=== PATIENT | male | born 1960 ===

== ENCOUNTER 2016-12-02 16:41 | Emergency (ER) | payer MEDICARE, OTHER ==
[2016-12-02 16:41] VITALS: BMI 29.9
[2016-12-02 16:51] VITALS: RESP 18
[2016-12-02] MEDS ORDERED: Sodium Chloride 0.9% 1,000 ML IV SCH (17:30)
--- NOTE | 2016-12-02 17:32 | ED PDOC ---
HPI: Chest Pain Time Seen by Provider: 12/02/16 17:16 Chief Complaint (Nursing): Chest Pain Chief Complaint (Provider): Chest Pain History Per: Patient History/Exam Limitations: no limitations Onset/Duration Of Symptoms: Days (x2) Current Symptoms Are (Timing): Still Present Additional Complaint(s): Sergo Heredia is a 56 year old male with previous medical history of migranes and kidney stones, who presents to the emergency department, accompanied by his friend, with a complaint of upper chest pain associated with generalized body aches and headache ongoing for 2 days. Denied cough, fever, chills or taking pain medication for relief. Patient stated that he feels "like a mac truck ran over his body" and that symptoms do not feel like prior kidney stone episodes. PMD: Denilson Carballo MD Past Medical History Reviewed: Historical Data, Nursing Documentation, Vital Signs Vital Signs: Last Vital Signs Temp 98.2 F 12/02/16 16:49 Pulse 92 H 12/02/16 17:19 Resp 18 12/02/16 17:19 BP 129/82 12/02/16 17:19 Pulse Ox 100 12/02/16 19:02 - Medical History PMH: Back Problems, Gastritis, Kidney Stones, Chronic Kidney Disease Denies: Arthritis - Surgical History Surgical History: No Surg Hx - Family History Family History: States: Unknown Family Hx - Social History Current smoker - smoking cessation education provided: Yes Alcohol: None Drugs: Denies - Immunization History Hx Tetanus Toxoid Vaccination: No Hx Influenza Vaccination: No Hx Pneumococcal Vaccination: No - Home Medications Home Medications: Ambulatory Orders Medication Instructions Recorded oxyCODONE/Acetaminophen [Percocet 1 tab PO Q6 #10 tab 03/31/16 5/325 mg Tab] - Allergies Allergies/Adverse Reactions: Allergies Allergy/AdvReac Type Severity Reaction Status Date / Time chicken derived Allergy Intermediate RASH Verified 03/31/16 16:52 Review of Systems ROS Statement: Except As Marked, All Systems Reviewed And Found Negative Constitutional: Positive for: Other (generalized body aches). Negative for: Fever, Chills Cardiovascular: Positive for: Chest Pain (upper) Respiratory: Negative for: Cough Neurological: Positive for: Headache Physical Exam - Reviewed Nursing Documentation Reviewed: Yes Vital Signs Reviewed: Yes - Physical Exam Appears: Positive for: Well, Non-toxic, No Acute Distress Head Exam: Positive for: ATRAUMATIC, NORMAL INSPECTION, NORMOCEPHALIC ENT: Positive for: Normal ENT Inspection, Pharynx Is (within normal limits). Negative for: Pharyngeal Erythema, Tonsillar Exudate, Tonsillar Swelling Neck: Positive for: Normal, Painless ROM, Supple Cardiovascular/Chest: Positive for: Regular Rate, Rhythm. Negative for: Chest Non Tender Respiratory: Positive for: Normal Breath Sounds. Negative for: Crackles, Rales , Rhonchi, Wheezing, Respiratory Distress Pulses-Radial (L): 2+ Pulses-Radial (R): 2+ Gastrointestinal/Abdominal: Positive for: Normal Exam, Bowel Sounds, Soft. Negative for: Tenderness, Guarding, Rebound Back: Positive for: Normal Inspection. Negative for: L CVA Tenderness, R CVA Tenderness Extremity: Positive for: Normal ROM. Negative for: Tenderness, Pedal Edema DTR - Ankle (R): 2+ DTR - Ankle (L): 2+ Neurologic/Psych: Positive for: Alert, screening representative II-XII, Oriented - Laboratory Results Result Diagrams: 12/02/16 17:49 12/02/16 17:49 - ECG O2 Sat by Pulse Oximetry: 100 (RA) Pulse Ox Interpretation: Normal Medical Decision Making Medical Decision Making: Initial Impression: Chest pain Initial Plan: * EKG * Labs * Drug screen, urine * Troponin I * Erythrocyte Sed Rate * Tylenol 650mg PO * Toradol 30mg IVP * NS 1,000ml IV per 1,000mls/hr * [place] swab * Influenza swab * Urinalysis Time: 1900 --Patient is signed out to Dr. Alber Dai. Pending lab results. Scribe Attestation: Documented by Mae Ledbetter, acting as a scribe for Ade Patton MD. Provider Scribe Attestation: All medical record entries made by the Scribe were at my direction and personally dictated by me. I have reviewed the chart and agree that the record accurately reflects my personal performance of the history, physical exam, medical decision making, and the department course for this patient. I have also personally directed, reviewed, and agree with the discharge instructions and disposition. Disposition - Clinical Impression Clinical Impression: Chest pain - Patient ED Disposition Is Patient to be Admitted: Transfer of Care Doctor Will See Patient In The: Office - Disposition Disposition: Transfer of Care Disposition Time: 19:03 Condition: GUARDED Forms: [facility] (Jordanian) Patient Signed Over To: Alber Dai Present On Arrival: None
[2016-12-02 17:55] LABS: BASO # 0.1 K/uL (0.0-0.2); BASO % 1.4 % (0.0-2.0); EOS # 0.2 K/uL (0.0-0.7); EOS % 1.8 % (0.0-4.0); HEMATOCRIT 42.6 % (35.0-51.0); LYMPH # 2.2 K/uL (1.0-4.3); LYMPH % 25.8 % (20.0-40.0); MEAN CELL VOLUME 90.9 fl (80.0-94.0); MEAN CORPUSCULAR HEMOGLOBIN 30.7 pg (27.0-31.0); MEAN CORPUSCULAR HGB CONC 33.8 g/dL (33.0-37.0); MONO # 0.4 K/uL (0.0-0.8); MONO % 5.3 % (0.0-10.0); NEUT # 5.5 K/uL (1.8-7.0); NEUT % 65.7 % (50.0-75.0); RED CELL DISTRIBUTION WIDTH 13.7 % (11.5-14.5); WHITE BLOOD COUNT 8.4 K/uL (4.8-10.8)
[2016-12-02 18:11] LABS: ALB/GLOB RATIO 1.4 (1.0-2.1); ALKALINE PHOSPHATASE 60 U/L (38-126); ALT/SGPT 24 U/L (21-72); AST/SGOT 23 U/L (17-59); BILIRUBIN,TOTAL 0.7 mg/dl (0.2-1.3); BLOOD UREA NITROGEN 13 mg/dl (9-20); CALCIUM 9.6 mg/dL (8.4-10.2); CARBON DIOXIDE 25 mmol/L (22-30); CHLORIDE 105 mmol/L (98-107); GFR AFRICAN-AMERICAN > 60; GLUCOSE,RANDOM 142 mg/dL (75-110); POTASSIUM 3.7 MMOL/L (3.6-5.0); SODIUM 142 mmol/l (132-148); TOTAL PROTEIN 7.4 G/DL (6.3-8.2)
[2016-12-02 18:18] LABS: RBC URINE 3 /hpf (0-3); URINE BACTERIA RARE (<OCC); URINE BILIRUBIN NEGATIVE (NEGATIVE); URINE BLOOD NEGATIVE (NEGATIVE); URINE COLOR YELLOW (YELLOW); URINE GLUCOSE (UA) NEG (Normal); URINE KETONE NEGATIVE (NEGATIVE); URINE LEUKOCYTE ESTERASE NEG Leu/uL (Negative); URINE PROTEIN NEGATIVE (NEGATIVE); URINE URIC ACID CRYSTALS OCC /hpf (<OCC); URINE UROBILINOGEN 0.2-1.0 mg/dL (0.2-1.0); WBC URINE 3 /hpf (0-5)
[2016-12-02] MEDS ORDERED: Dexamethasone 4 mg/1 ml IVP STA (19:52)
--- NOTE | 2016-12-02 19:54 | ED PDOC ---
- Laboratory Results Result Diagrams: 12/02/16 17:49 12/02/16 17:49 - ECG O2 Sat by Pulse Oximetry: 100 (RA) Pulse Ox Interpretation: Normal Medical Decision Making Medical Decision Making: Time: 1899 --Patient was endorsed to provider by Dr. Ade Patton. Pending re-assessment after medications. Time: 2029 --Upon provider reevaluation, patient is feeling better, medically stable, and requires no further treatment in the ED at this time. He admits to being under a lot of stress lately with work and has not been sleeping as much. Patient will be discharged home. Counseling was provided and all questions were answered regarding diagnosis and need for follow up with PCP. There is agreement to discharge plan. Return if symptoms persist or worsen. Clinical Impression: Migraine, stress, noncardiac chest pain. Scribe Attestation: Documented by Mae Ledbetter, acting as a scribe for Alber Dai MD. Provider Scribe Attestation: All medical record entries made by the Scribe were at my direction and personally dictated by me. I have reviewed the chart and agree that the record accurately reflects my personal performance of the history, physical exam, medical decision making, and the department course for this patient. I have also personally directed, reviewed, and agree with the discharge instructions and disposition. Disposition Counseled Patient/Family Regarding: Studies Performed, Diagnosis - Clinical Impression Clinical Impression: Chest pain, Back pain, Migraine - POA Present On Arrival: None - Disposition Referrals: Denilson Carballo MD [Medical Doctor] - Jonathan Pedraza MD [Staff Provider] - Scar Fraser MD [Staff Provider] - Disposition: Routine/Home Disposition Time: 20:30 Condition: STABLE Prescriptions: Cyclobenzaprine [Cyclobenzaprine HCl] 10 mg PO BID #15 tab Meloxicam [Mobic] 15 mg PO DAILY #30 tab Instructions: Chest Pain (ED), Migraine Headache (ED), Stress (ED) Forms: [facility] (Maori)
[2016-12-02 20:17] VITALS: BP 145/92; PULSE 60
[2016-12-02 20:20] VITALS: TEMP 98.7
[2016-12-02 20:38] VITALS: O2SAT 100
--- NOTE | 2016-12-03 08:49 | RAD ---
HISTORY: Chest pain, back pain, arm pain COMPARISON: No prior. FINDINGS: LUNGS: The lungs are clear. PLEURA: No significant pleural effusion identified, no pneumothorax apparent. CARDIOVASCULAR: Normal. OSSEOUS STRUCTURES: No significant abnormalities. VISUALIZED UPPER ABDOMEN: Normal. OTHER FINDINGS: None. IMPRESSION: No active pulmonary disease.
--- NOTE | 2016-12-04 00:10 | CARD ---
APPROVED REPORT EKG Measurement Heart [id number] <Conclusion> Normal sinus rhythm Possible Left atrial enlargement Nonspecific ST abnormality Abnormal ECG
== END 2016-12-02 20:50 | disposition home or self-care (01) ==
LOC: H.ER 16:41
DX: R07.89 Other chest pain (principal); M54.9 Dorsalgia, unspecified; G43.909 Migraine, unspecified, not intractable, without status migrainosus
CPT/HCPCS: 71010; 80053; 81003; 84484; 85025; 85651; 86308; 87804; 93005; 96361; 96365; 96375; 96376; 99284; G0480; J1100; J1885; J2270; J2765; J7040

== ENCOUNTER 2017-03-05 12:06 | Emergency (ER) | payer MEDICARE, OTHER ==
[2017-03-05 12:06] VITALS: BMI 29.9
[2017-03-05] MEDS ORDERED: Sodium Chloride 0.9% 1,000 ML IV STA (13:11)
--- NOTE | 2017-03-05 13:27 | ED PDOC ---
HPI: Abdomen Time Seen by Provider: 03/05/17 12:38 Chief Complaint (Nursing): GI Problem Chief Complaint (Provider): Abdominal pain History Per: Patient History/Exam Limitations: no limitations Onset/Duration Of Symptoms: Days (2) Outside of [place] travel?: No Current Symptoms Are (Timing): Still Present Location Of Pain/Discomfort: Diffuse Quality Of Discomfort: "Pain" Associated Symptoms: Nausea, Vomiting, Diarrhea Additional History Per: Patient Additional Complaint(s): 56yo male, with no known past medical history, presents to ED for evaluation of fever, nausea, vomiting, diarrhea and abdominal pain for the past 2 days. Patient reports a dark vomitus. He denies taking any medications for his symptoms and denies any medical complaints. Past Medical History Reviewed: Historical Data, Nursing Documentation, Vital Signs Vital Signs: Last Vital Signs Temp 97.9 F 03/05/17 17:00 Pulse 78 03/05/17 17:00 Resp 14 03/05/17 17:00 BP 128/75 03/05/17 17:00 Pulse Ox 99 03/05/17 18:25 - Medical History PMH: Back Problems, Gastritis, Kidney Stones, Chronic Kidney Disease Denies: Arthritis - Surgical History Surgical History: No Surg Hx - Family History Family History: States: No Known Family Hx, Unknown Family Hx - Immunization History Hx Tetanus Toxoid Vaccination: No Hx Influenza Vaccination: No Hx Pneumococcal Vaccination: No - Home Medications Home Medications: Ambulatory Orders Medication Instructions Recorded oxyCODONE/Acetaminophen [Percocet 1 tab PO Q6 #10 tab 03/31/16 5/325 mg Tab] Cyclobenzaprine [Cyclobenzaprine 10 mg PO BID #15 tab 12/02/16 HCl] Meloxicam [Mobic] 15 mg PO DAILY #30 tab 12/02/16 Dicyclomine [Bentyl] 20 mg PO QID PRN #10 tab 03/05/17 Ondansetron [Zofran Odt] 4 mg PO Q8H PRN #15 odt 03/05/17 Pantoprazole Sodium [Protonix] 40 mg PO DAILY #10 ect 03/05/17 - Allergies Allergies/Adverse Reactions: Allergies Allergy/AdvReac Type Severity Reaction Status Date / Time No Known Allergies Allergy Verified 03/05/17 12:21 Review of Systems ROS Statement: Except As Marked, All Systems Reviewed And Found Negative Constitutional: Positive for: Fever (99 tmax) Gastrointestinal: Positive for: Nausea, Vomiting, Abdominal Pain, Diarrhea Physical Exam - Reviewed Nursing Documentation Reviewed: Yes Vital Signs Reviewed: Yes - Physical Exam Appears: Positive for: Non-toxic, No Acute Distress Head Exam: Positive for: ATRAUMATIC, NORMAL INSPECTION, NORMOCEPHALIC Skin: Positive for: Normal Color Eye Exam: Positive for: Normal appearance, EOMI, PERRL Neck: Positive for: Normal, Supple Cardiovascular/Chest: Positive for: Regular Rate, Rhythm Respiratory: Positive for: Normal Breath Sounds. Negative for: Respiratory Distress Gastrointestinal/Abdominal: Positive for: Soft, Tenderness (diffuse). Negative for: Guarding, Rebound Back: Positive for: Normal Inspection Extremity: Positive for: Normal ROM Neurologic/Psych: Positive for: Alert, Oriented. Negative for: Motor/Sensory Deficits - Laboratory Results Result Diagrams: 03/05/17 13:25 03/05/17 13:25 - ECG O2 Sat by Pulse Oximetry: 99 (RA) Pulse Ox Interpretation: Normal Medical Decision Making Medical Decision Making: Time: 1310 Impression: Abdominal pain Differential: Gastroenteritis, viral syndrome Plan: -- CT AP w/ IV Contrast -- Labs -- IV Founds -- Bentyl -- Zofran -- IV Protonix Reassess Pt stable during ED observation, no episodes of vomiting, hemoglobin WNL, will d /c home with Rx Protonix and Zofran to follow-up with [facility] for [facility]ibel EGD if symptoms persist. Pt states he has appt already scheduled with Dr. Douglas Fraser. Scribe Attestation: Documented by Rain Barboza acting as a scribe for Lindsay Matthew MD. Provider Attestation: All medical record entries made by the Scribe were at my direction and personally dictated by me. I have reviewed the chart and agree that the record accurately reflects my personal performance of the history, physical exam, medical decision making, and the department course for this patient. I have also personally directed, reviewed, and agree with the discharge instructions and disposition. Disposition - Clinical Impression Clinical Impression: Viral syndrome - Disposition Referrals: Shaik Serra MD [Family Provider] - Douglas Fraser MD [Staff Provider] - Disposition: Routine/Home Disposition Time: 17:15 Condition: IMPROVED Prescriptions: Dicyclomine [Bentyl] 20 mg PO QID PRN #10 tab PRN Reason: Pain, Moderate (4-7) Ondansetron [Zofran Odt] 4 mg PO Q8H PRN #15 odt PRN Reason: Nausea/Vomiting Pantoprazole Sodium [Protonix] 40 mg PO DAILY #10 ect Instructions: Viral Syndrome (ED) Forms: [facility] (Fijian)
[2017-03-05 13:42] LABS: BASO # 0.1 K/uL (0.0-0.2); BASO % 0.4 % (0.0-2.0); EOS % 0.3 % (0.0-4.0); HEMATOCRIT 42.1 % (35.0-51.0); LYMPH # 1.3 K/uL (1.0-4.3); LYMPH % 9.9 % (20.0-40.0); MEAN CELL VOLUME 92.9 fl (80.0-94.0); MEAN CORPUSCULAR HEMOGLOBIN 30.7 pg (27.0-31.0); MEAN CORPUSCULAR HGB CONC 33.1 g/dL (33.0-37.0); MEAN PLATELET VOLUME 8.5 fl (7.2-11.7); MONO # 0.6 K/uL (0.0-0.8); NEUT % 84.4 % (50.0-75.0); PLATELET COUNT 259 K/uL (130-400); RED CELL DISTRIBUTION WIDTH 13.6 % (11.5-14.5)
[2017-03-05 14:17] LABS: ALB/GLOB RATIO 1.3 (1.0-2.1); ALKALINE PHOSPHATASE 55 U/L (38-126); ALT/SGPT 29 U/L (21-72); AST/SGOT 18 U/L (17-59); BILIRUBIN,TOTAL 0.6 mg/dl (0.2-1.3); BLOOD UREA NITROGEN 31 mg/dl (9-20); CALCIUM 8.9 mg/dL (8.4-10.2); CARBON DIOXIDE 23 mmol/L (22-30); CHLORIDE 111 mmol/L (98-107); GFR AFRICAN-AMERICAN > 60; GLUCOSE,RANDOM 100 mg/dL (75-110); LIPASE 47 U/L (23-300); POTASSIUM 4.9 MMOL/L (3.6-5.0); SODIUM 144 mmol/l (132-148); TOTAL PROTEIN 7.6 G/DL (6.3-8.2)
[2017-03-05 14:19] LABS: RBC URINE 1 /hpf (0-3); URINE BILIRUBIN NEGATIVE (NEGATIVE); URINE BLOOD NEGATIVE (NEGATIVE); URINE COLOR YELLOW (YELLOW); URINE GLUCOSE (UA) NEG (Normal); URINE KETONE TRACE mg/dL (NEGATIVE); URINE LEUKOCYTE ESTERASE NEG Leu/uL (Negative); URINE PROTEIN NEGATIVE (NEGATIVE); URINE UROBILINOGEN 0.2-1.0 mg/dL (0.2-1.0); WBC URINE < 1 /hpf (0-5)
[2017-03-05] MEDS ORDERED: Iohexol 300 100 ML IJ ONE (14:44)
[2017-03-05] MEDS ORDERED: Sodium Chloride 0.9% 50 ML IV ONE (14:44)
[2017-03-05 16:01] LABS: NEUTROPHIL 84 % (42-75); TOTAL CELLS COUNTED 100
[2017-03-05 16:02] LABS: LARGE PLATELETS PRESENT
--- NOTE | 2017-03-05 16:12 | CT ---
PROCEDURE: CT Abdomen and Pelvis with contrast HISTORY: Abd pain, v/d COMPARISON: None. TECHNIQUE: Contrast dose: 95 mL Omnipaque 300 Radiation dose: Total exam DLP = 744.5 mGy-cm. This CT exam was performed using one or more of the following dose reduction techniques: Automated exposure control, adjustment of the mA and/or kV according to patient size, and/or use of iterative reconstruction technique. FINDINGS: LOWER THORAX: Bibasilar dependent atelectasis. LIVER: Unremarkable. No gross lesion or ductal dilatation. GALLBLADDER AND BILE DUCTS: Unremarkable. PANCREAS: Unremarkable. No gross lesion or ductal dilatation. SPLEEN: Unremarkable. ADRENALS: Unremarkable. No mass. KIDNEYS AND URETERS: Unremarkable. No hydronephrosis. No solid mass. VASCULATURE: Unremarkable. No aortic aneurysm. BOWEL: Colonic diverticulosis without diverticulitis. No obstruction. No gross mural thickening. APPENDIX: Normal appendix. PERITONEUM: Small bilateral fat containing inguinal hernias. No free fluid. No free air. LYMPH NODES: Unremarkable. No enlarged lymph nodes. BLADDER: Unremarkable. REPRODUCTIVE: Unremarkable. BONES: Spinal and pelvic degenerative changes No acute fracture. OTHER FINDINGS: None. IMPRESSION: No acute abdominal pelvic pathology.
--- NOTE | 2017-03-05 16:26 | CT ---
PROCEDURE: CT HEAD WITHOUT CONTRAST. HISTORY: MYRICK COMPARISON: None available. TECHNIQUE: Axial computed tomography images were obtained through the head/brain without intravenous contrast. Radiation dose: Total exam DLP = 821 point mGy-cm. This CT exam was performed using one or more of the following dose reduction techniques: Automated exposure control, adjustment of the mA and/or kV according to patient size, and/or use of iterative reconstruction technique. FINDINGS: HEMORRHAGE: No intracranial hemorrhage. BRAIN: No mass effect or edema. No atrophy or chronic microvascular ischemic changes. VENTRICLES: Unremarkable. No hydrocephalus. CALVARIUM: Unremarkable. PARANASAL SINUSES: Unremarkable as visualized. No significant inflammatory changes. MASTOID AIR CELLS: Unremarkable as visualized. No inflammatory changes. OTHER FINDINGS: None. IMPRESSION: Normal CT of the Head.
[2017-03-05 17:39] VITALS: BP 128/75; PULSE 78; RESP 14; TEMP 97.9
[2017-03-05 17:45] VITALS: O2SAT 99
--- NOTE | 2017-03-06 10:17 | CARD ---
APPROVED REPORT EKG Measurement Heart [id number] <Conclusion> Normal sinus rhythm Normal ECG
== END 2017-03-05 17:36 | disposition home or self-care (01) ==
LOC: H.ER 12:06
DX: B34.9 Viral infection, unspecified (principal); N18.9 Chronic kidney disease, unspecified; Z87.442 Personal history of urinary calculi
CPT/HCPCS: 70450; 74177; 80053; 81003; 83690; 85025; 85610; 85730; 93005; 96374; 96375; 99284; C9113; J2405; J7040; Q9967

== ENCOUNTER 2017-03-21 13:42 | Emergency (ER) | payer MEDICARE, OTHER ==
[2017-03-21 13:42] VITALS: BMI 29.9
[2017-03-21 13:52] VITALS: BP 161/89; PULSE 76; RESP 16; TEMP 98; O2SAT 99
[2017-03-21] MEDS ORDERED: Morphine 4 MG/ML VIAL ONE (14:08)
--- NOTE | 2017-03-21 15:37 | CT ---
PROCEDURE: CT Lumbar Spine without contrast HISTORY: low back pain, acute on chronic COMPARISON: None. TECHNIQUE: Axial computed tomography images were obtained of the lumbar spine without the use of intravenous contrast. Coronal and sagittal reformatted images were created and reviewed. Radiation dose: Total exam DLP = 904.89 mGy-cm. This CT exam was performed using one or more of the following dose reduction techniques: Automated exposure control, adjustment of the mA and/or kV according to patient size, and/or use of iterative reconstruction technique. FINDINGS: VERTEBRAE: There is minimal anterior wedging of L1 which may reflect a compression fracture, age indeterminate. Remaining vertebral bodies are normal in height throughout with limited spondylosis at superior greater than inferior levels. No spondylolisthesis identified. No destructive bony lesion identified and multilevel facet arthropathy appears moderate, concentrated at the lower lumbar spine. Prevertebral paraspinal soft tissues appear diffusely unremarkable. Overall lumbar curvature appears normal. DISCS/SPINAL CANAL/NEURAL FORAMINA: L1-2: Limited disc bulging appreciated without stenosis. L2-3: A generalized disc bulge combines with limited facet joint degenerative changes resulting and mild bilateral lateral recess stenosis without generalized central canal stenosis upper occurring. L3-4: Initial limited generalized disc bulge combines with moderate facet degenerative changes stenosing the lateral recesses symmetrically. Generalized central canal stenosis not apparent however. Mild bilateral neural foraminal stenosis appears symmetric. L4-5: A large generalized disc bulge combines with moderate facet joint degenerative change with a small central disc protrusion causing moderate to severe central canal stenosis. Mild degenerative neural foraminal stenoses are also identified symmetrically. L5-S1: Minimal generalized disc bulge is appreciated without significant stenosis occurring. No neural foraminal stenosis as well. OTHER FINDINGS: None. IMPRESSION: Multilevel degenerative disc bulging and facet joint degenerative hypertrophy result in a severe central stenosis at L4-5 and limited lateral recesses otherwise at the mid and superior lumbar spine as discussed above. A small central disc protrusion is associated with the disc bulge at L4-5. Limited multilevel neural foraminal stenoses are also identified on degenerative basis. Minimal L1 compression fracture may be present but of indeterminate age. MRI or bone scan can properly stage stage of this potential fracture.
--- NOTE | 2017-03-21 16:54 | ED PDOC ---
HPI: Back Time Seen by Provider: 03/21/17 13:55 Chief Complaint (Nursing): Back Pain Chief Complaint (Provider): Low back pain, 3 days, seen at [facility] yesterday History Per: Patient History/Exam Limitations: no limitations Onset/Duration Of Symptoms: Days Current Symptoms Are (Timing): Still Present Full Body Front + Back: 1 - Pain Quality Of Discomfort: Sharp Description Of Injury (Context): wisted while shoveling 3 days ago Additional Complaint(s): PT had chronic back pain and history of herniated discs. PT states he was shoveling and began to have sharp pain in the central lower back after twisting. Pt states he feels his left leg going numb after walking. PT denies bowel or bladder incontinence. 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 Past Medical History Reviewed: Historical Data, Nursing Documentation, Vital Signs Vital Signs: Last Vital Signs Temp 98.0 F 03/21/17 13:50 Pulse 76 03/21/17 13:50 Resp 16 03/21/17 13:50 BP 161/89 H 03/21/17 13:50 Pulse Ox 99 03/21/17 13:50 - Medical History PMH: Back Problems, Gastritis, Kidney Stones, Chronic Kidney Disease Denies: Arthritis - Family History Family History: States: Unknown Family Hx - Immunization History Hx Tetanus Toxoid Vaccination: No Hx Influenza Vaccination: No Hx Pneumococcal Vaccination: No - Home Medications Home Medications: Ambulatory Orders Medication Instructions Recorded Cyclobenzaprine [Cyclobenzaprine 10 mg PO BID #15 tab 12/02/16 HCl] Meloxicam [Mobic] 15 mg PO DAILY #30 tab 12/02/16 Dicyclomine [Bentyl] 20 mg PO QID PRN #10 tab 03/05/17 Ondansetron [Zofran Odt] 4 mg PO Q8H PRN #15 odt 03/05/17 Pantoprazole Sodium [Protonix] 40 mg PO DAILY #10 ect 03/05/17 Cyclobenzaprine [Cyclobenzaprine 1 tab PO Q8H #12 tab 03/20/17 HCl] oxyCODONE/Acetaminophen [Percocet 1 tab PO Q6 #10 tab 03/20/17 5/325 mg Tab] - Allergies Allergies/Adverse Reactions: Allergies Allergy/AdvReac Type Severity Reaction Status Date / Time chicken derived Allergy Verified 03/20/17 14:29 Review of Systems ROS Statement: Except As Marked, All Systems Reviewed And Found Negative Constitutional: Negative for: Fever, Chills Musculoskeletal: Positive for: Back Pain Neurological: Positive for: Numbness (Left leg after walking ) Physical Exam - Reviewed Nursing Documentation Reviewed: Yes Vital Signs Reviewed: Yes - Physical Exam Appears: Positive for: Well, Non-toxic, No Acute Distress Head Exam: Positive for: ATRAUMATIC, NORMAL INSPECTION, NORMOCEPHALIC Skin: Positive for: Normal Color, Warm, DRY Eye Exam: Positive for: Normal appearance ENT: Positive for: Normal ENT Inspection Neck: Positive for: Normal, Painless ROM Cardiovascular/Chest: Positive for: Regular Rate, Rhythm Respiratory: Positive for: CNT, Normal Breath Sounds Back: Positive for: Normal Inspection, Vertebral Tenderness (L spine) Rectal: Positive for: Deferred Extremity: Positive for: Normal ROM, Other (Normal sensation in lower extremities ) Neurologic/Psych: Positive for: Alert, Oriented - ECG O2 Sat by Pulse Oximetry: 99 Pulse Ox Interpretation: Normal Medical Decision Making Medical Decision Making: L1 compression fx, (+) severe spinal stenosis. Discussed recommended MRI for CT findings with patient and admission. Pt states he will not be able to sat in the ER because of his dog. Pt states his dog is very protective and he is the only one who can take care of him and he needs to make arrangements. Pt states he will return to the ER. Discussed possible further complications including worsening pain, worsening stenosis, paralysis, limb weakness which may be permanent, etc. Pt demonstrates understanding of signing out AMA. Disposition - Clinical Impression Clinical Impression: Spinal stenosis, Lumbar compression fracture - Patient ED Disposition Is Patient to be Admitted: No - Disposition Disposition: Against Medical Advice Disposition Time: 16:20 Condition: STABLE
== END 2017-03-21 16:51 | disposition left against medical advice (07) ==
LOC: H.ER 13:42
DX: M48.061 Spinal stenosis, lumbar region without neurogenic claudication (principal); M48.56XA Collapsed vertebra, not elsewhere classified, lumbar region, initial encounter for fracture; G89.29 Other chronic pain; M51.36 Other intervertebral disc degeneration, lumbar region; Z87.442 Personal history of urinary calculi
CPT/HCPCS: 72131; 96372; 99282; J1170; J2270